=== PATIENT | female | born 2000 | race Caucasian/White ===

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

== ENCOUNTER → 2021-11-24 | Outpatient (CLI) | payer OTHER ==
[2021-11-24 11:26] LABS: HEMATOCRIT 38.6 % (36.0-47.0); HEMOGLOBIN 13.3 g/dl (12.0-15.5); MEAN CORPUSCULAR HEMOGLOBIN 30.3 pg (27.0-33.0); MEAN CORPUSCULAR HGB CONC 34.5 g/dl (32.0-36.5); MEAN CORPUSCULAR VOLUME 87.9 fl (80.0-96.0); PLATELET COUNT, AUTOMATED 207 10^3/uL (150-450); RED BLOOD COUNT 4.39 10^6/uL (4.00-5.40); WHITE BLOOD COUNT 6.4 10^3/uL (4.0-10.0)
[2021-11-24 11:48] LABS: ALBUMIN 3.7 GM/DL (3.2-5.2); ALT/SGPT 63 U/L (12-78); BILIRUBIN,TOTAL 0.2 MG/DL (0.2-1.0); BLOOD UREA NITROGEN 20 MG/DL (7-18); CALCIUM LEVEL 9.1 MG/DL (8.5-10.1); CARBON DIOXIDE LEVEL 28 MEQ/L (21-32); CHLORIDE LEVEL 106 MEQ/L (98-107); CREATININE FOR GFR 0.83 MG/DL (0.55-1.30); GLUCOSE, FASTING 86 MG/DL (70-100); POTASSIUM SERUM 3.7 MEQ/L (3.5-5.1); SODIUM LEVEL 141 MEQ/L (136-145)
[2021-11-24 12:03] LABS: ATYPICAL LYMPH 4 % (0-5); LYMPHOCYTES 25 % (16-44); MONOCYTES 19 % (0-5); NEUTROPHILS 52 % (28-66); PLATELET ESTIMATE NORMAL (NORMAL)
[2021-11-25 14:08] LABS: EBV AB TO NUCLEAR ANTIGEN <18.0 U/mL (0.0-17.9); EBV VIRAL CAPSID AG IgG <18.0 U/mL (0.0-17.9); EBV VIRAL CAPSID AG IgM <36.0 U/mL (0.0-35.9)
== END ==
LOC: M LAB 10:42
PROVIDERS: ATTEND Nurse Practitioner Family
DX: R50.9 Fever, unspecified (principal)

== ENCOUNTER → 2023-05-19 | Outpatient (REF) | payer OTHER ==
[2023-05-19 21:20] LABS: GC DNA AMPLIFICATION NEGATIVE (NEGATIVE)
== END ==
LOC: M LAB REF 17:21
PROVIDERS: ATTEND Family Medicine
DX: Z11.3 Encounter for screening for infections with a predominantly sexual mode of transmission (principal)

== ENCOUNTER → 2023-12-28 | Outpatient (REF) | payer OTHER ==
[2023-12-28 19:14] LABS: GC DNA AMPLIFICATION NEGATIVE (NEGATIVE)
== END ==
LOC: M LAB REF 16:47
PROVIDERS: ATTEND Family Medicine
DX: Z11.3 Encounter for screening for infections with a predominantly sexual mode of transmission (principal)

== ENCOUNTER → 2024-06-26 | Outpatient (REF) | payer OTHER ==
[2024-06-26 19:06] LABS: GC DNA AMPLIFICATION NEGATIVE (NEGATIVE)
== END ==
LOC: M LAB REF 17:03
PROVIDERS: ATTEND Nurse Practitioner Family
DX: Z11.3 Encounter for screening for infections with a predominantly sexual mode of transmission (principal)

== ENCOUNTER → 2025-10-03 | Outpatient (CLI) | payer OTHER ==
[2025-10-03 12:57] LABS: BASO # 0.1 10^3/uL (0.0-0.2); BASO % 0.8 % (0.0-1.0); EOS # 0.2 10^3/uL (0.0-0.5); EOS % 3.2 % (0.0-3.0); LYMPH # 1.8 10^3/uL (1.5-5.0); LYMPH % 24.5 % (24.0-44.0); MONO # 0.7 10^3/uL (0.0-0.8); MONO % 10.0 % (2.0-8.0); NEUTROPHILS # 4.4 10^3/uL (1.5-8.5); NEUTROPHILS % 61.1 % (36.0-66.0); PLATELET COUNT, AUTOMATED 317 10^3/uL (150-450)
[2025-10-03 13:30] LABS: ALT/SGPT 24 U/L (7.0-40); AST/SGOT 21 U/L (<34); CALCIUM LEVEL 9.6 MG/DL (8.5-10.1); CARBON DIOXIDE LEVEL 22 MMOL/L (20-31); CHLORIDE LEVEL 106 MMOL/L (98-107); CREATININE FOR GFR 0.91 MG/DL (0.55-1.30); FREE T4 1.37 NG/DL (0.89-1.76); GLOMERULAR FILTRATION RATE > 90.0 (>60); POTASSIUM SERUM 4.1 MMOL/L (3.5-5.1); SODIUM LEVEL 139 MMOL/L (136-145); THYROGLOBULIN ANTIBODY 28.0 U/ML (<60.0); THYROID PEROXIDASE ANTIBODY 31 U/ML (<60.0); TOTAL 25(OH) VITAMIN D 35.8 NG/ML (20.0-100.0); VITAMIN B12 LEVEL 629 PG/ML (211-911)
[2025-10-05 16:17] LABS: EBV VIRAL CAPSID AG IGG 59.50 U/mL (<18.00); EBV VIRAL CAPSID AG IGM > 160.00 U/mL (<36.00)
[2025-10-06 21:28] LABS: LYME TOTAL ANTIBODY CIA <= 0.90 Index (<=0.90)
[2025-10-07 06:06] LABS: BORRELIA SPECIES DNA NOT DETECTED (NOT DETECT)
== END ==
LOC: M LAB 09:59
PROVIDERS: ATTEND Nurse Practitioner Family
DX: M12.9 Arthropathy, unspecified (principal); R53.83 Other fatigue